=== PATIENT | female | born 1955 | race Caucasian/White ===

== ENCOUNTER 2019-01-04 03:25 | Inpatient (IN) | payer MEDICARE ==
[~2019-01-04] VITALS: Ht 160 cm; Wt 78.0 kg
[~2019-01-04 03:25] MED LIST: ATOR40TA78 PO; CANA300T PO; GABA-826 PO; LISI-170 PO
--- NOTE | 2019-01-04 03:32 | NUR ---
BROUGHT IN BY [facility] FROM HOME. PATIENT SUDDENLY HAVING PALPITATION. TOOK HER PULSE OX AND FOUND HER HEART RATE WAS 220. HX OF SVT. EMS ARRIVAL PATIENT STILL ON 220, ADENOSINE GIVEN @ 0304 6 MG CONVERTED BUT IT CAME BACK, 12 MG ADENOSINE GIVEN @ 0308, CONVERTED.
[2019-01-04] MEDS ORDERED: ASPI81TA45 PO (03:42)
[2019-01-04] MEDS ORDERED: GLIP5TAB10 PO (03:42)
[2019-01-04] MEDS ORDERED: PROP10TA16 PO (03:42)
[2019-01-04] MEDS ORDERED: METH5TAB6 PO (03:42)
--- NOTE | 2019-01-04 03:51 | NUR ---
blood drawn. IVF hung.
[2019-01-04 03:58] LABS: BASOPHILS # (AUTO) 0.04 x10^3/uL (0-0.1); BASOPHILS % (AUTO) 1 % (0-1); EOSINOPHILS % (AUTO) 5 % (1-7); LYMPHOCYTES # (AUTO) 1.78 x10^3/uL (1-3.4); LYMPHOCYTES % (AUTO) 22 % (22-44); MD NO; MEAN CORPUSCULAR HEMOGLOBIN 25.8 pg (27.0-34.8); MEAN CORPUSCULAR HGB CONC 32.4 g/dL (32.4-35.8); MEAN CORPUSCULAR VOLUME 79.6 fL (80-100); MEAN PLATELET VOLUME 9.8 fL (7.4-10.4); MONOCYTES # (AUTO) 0.87 x10^3/uL (0.2-0.8); MONOCYTES % (AUTO) 11 % (2-9); NEUTROPHILS # (AUTO) 5.16 x10^3/uL (1.8-6.8); NEUTROPHILS % (AUTO) 63 % (42-75); PLATELET COUNT 229 x10^3/uL (130-400); RED BLOOD COUNT 5.21 x10^6/uL (3.82-5.3); RED CELL DISTRIBUTION WIDTH 15.1 % (9.6-15.2)
[2019-01-04] MEDS ORDERED: SODIUM CHLORIDE 0.9% 1,000ML IVBOLUS ONE (04:00)
[2019-01-04 04:09] LABS: ANION GAP 5 mmol/L (5-15); CALCIUM 8.5 mg/dL (8.5-10.1); CHLORIDE 113 mmol/L (98-107); CREATININE 0.53 mg/dL (0.55-1.02)
[2019-01-04 04:13] LABS: FREE T4 (FREE THYROXINE) 2.58 ng/dL (0.76-1.46); TROPONIN I < 0.015 ng/mL (0.000-0.045)
--- NOTE | 2019-01-04 04:48 | NUR ---
all labs and X ray resulted. chart up for MD to re-eval.
[2019-01-04] MEDS ORDERED: PROPRANOLOL 60 MG TABLET PO ONE (05:30)
[2019-01-04] MEDS ORDERED: PROPYLTHIOURACIL 50 MG TABLET PO ONE (05:30)
--- NOTE | 2019-01-04 05:45 | NUR ---
patient went to bathroom with steady gait.
--- NOTE | 2019-01-04 06:25 | NUR ---
patient resting comfortably. awaiting bed assignment.
--- NOTE | 2019-01-04 06:48 | NUR ---
Hospitalist at bedside for patient evaluation.
--- NOTE | 2019-01-04 06:56 | NUR ---
report to Nathalie RN's
[2019-01-04] MEDS ORDERED: MAGNESIUM SULFATE PMX 2GM/50ML 50 ML IV ONE (07:00)
[2019-01-04] MEDS ORDERED: DOCUSATE 100 MG CAPSULE PO PRN (07:30)
[2019-01-04] MEDS ORDERED: ACETAMINOPHEN 325 MG TABLET PO PRN (07:30)
[2019-01-04] MEDS ORDERED: ENALAPRILAT 1.25 MG/ML, 2ML IVPush PRN (07:30)
--- NOTE | 2019-01-04 07:34 | NUR ---
REPORT GIVEN TO RODR[facility] RN'S. PATIENT IS RESTING IN ROOM WITH CALL LIGHT IN REACH AWAITING TRANSPORT.
--- NOTE | 2019-01-04 07:49 | NUR ---
PATIENT TRANSPORTED TO [facility].
[2019-01-04 08:03] LABS: HEMOGLOBIN A1C 7.7 % (4.2-6.3)
[2019-01-04 08:05] VITALS: BP 157/69
[2019-01-04] MEDS: METHIMAZOLE 5 MG TAB PO SCH ×3 (09:00→20:29)
[2019-01-04 12:31] LABS: TROPONIN I < 0.015 ng/mL (0.000-0.045)
[2019-01-04] MEDS ORDERED: OMNIPAQUE 350 MG/ML, 100ML BOTTLE ONE (13:23)
[2019-01-04 13:51] VITALS: BP 185/93
[2019-01-04] MEDS: PROPRANOLOL 40 MG TABLET PO SCH ×2 (14:13→21:19)
[2019-01-04] MEDS: MAGNESIUM OXIDE 400 MG TABLET PO SCH ×2 (14:13→20:29)
[2019-01-04] MEDS: SODIUM CHLORIDE 0.9% 1,000 ML IV SCH ×2 (14:17→21:19)
[2019-01-04] MEDS ORDERED: ONDANSETRON 2MG/ML, 2ML IVPush PRN (16:00)
[2019-01-04] MEDS ORDERED: LORazepam 0.5MG TABLET PO ONE (16:00)
[2019-01-04] MEDS ORDERED: ALUMINUM/MAG/SIMETHICONE 30 ML UDC ONE (16:01)
[2019-01-04] MEDS ORDERED: LORazepam 0.5MG TABLET ONE (16:02)
[2019-01-04] MEDS ORDERED: ONDANSETRON 2MG/ML, 2ML ONE (16:02)
[2019-01-04] MEDS: ENOXAPARIN 40 MG/0.4 ML SQ SCH (16:04)
[2019-01-04] MEDS: ALUMINUM/MAG/SIMETHICONE 30 ML UDC PO PRN (16:05)
[2019-01-04] MEDS ORDERED: MAGNESIUM SULFATE PMX 2GM/50ML 50 ML ONE (16:17)
[2019-01-04 16:52] LABS: TROPONIN I < 0.015 ng/mL (0.000-0.045)
[2019-01-04 19:29] VITALS: BP 140/84
[2019-01-05] VITALS (7 sets, daily range): BP systolic 114–160; BP diastolic 56–83
[2019-01-05] MEDS: SODIUM CHLORIDE 0.9% 1,000 ML IV SCH (03:50)
[2019-01-05 05:11] LABS: ALANINE AMINOTRANSFERASE 18 U/L (12-78); ALBUMIN 2.7 g/dL (3.4-5.0); ANION GAP 3 mmol/L (5-15); CALCIUM 8.1 mg/dL (8.5-10.1); CHLORIDE 114 mmol/L (98-107); CREATININE 0.52 mg/dL (0.55-1.02)
[2019-01-05 05:12] LABS: BASOPHILS # (AUTO) 0.03 x10^3/uL (0-0.1); BASOPHILS % (AUTO) 0 % (0-1); EOSINOPHILS # (AUTO) 0.36 x10^3/uL (0-0.4); EOSINOPHILS % (AUTO) 5 % (1-7); LYMPHOCYTES # (AUTO) 1.92 x10^3/uL (1-3.4); LYMPHOCYTES % (AUTO) 25 % (22-44); MD NO; MEAN CORPUSCULAR HGB CONC 32.3 g/dL (32.4-35.8); MEAN CORPUSCULAR VOLUME 80.5 fL (80-100); MEAN PLATELET VOLUME 10.4 fL (7.4-10.4); MONOCYTES # (AUTO) 1.07 x10^3/uL (0.2-0.8); MONOCYTES % (AUTO) 14 % (2-9); NEUTROPHILS # (AUTO) 4.42 x10^3/uL (1.8-6.8); NEUTROPHILS % (AUTO) 57 % (42-75); PLATELET COUNT 196 x10^3/uL (130-400); RED BLOOD COUNT 4.66 x10^6/uL (3.82-5.3); RED CELL DISTRIBUTION WIDTH 14.8 % (9.6-15.2)
[2019-01-05 05:13] LABS: ALKALINE PHOSPHATASE 129 U/L (45-117); BILIRUBIN,TOTAL 0.3 mg/dL (0.2-1.0); TOTAL PROTEIN 6.3 g/dL (6.4-8.2)
[2019-01-05] MEDS: PROPRANOLOL 40 MG TABLET PO SCH ×3 (05:58→21:39)
[2019-01-05] MEDS: METHIMAZOLE 5 MG TAB PO SCH ×3 (09:51→22:46)
[2019-01-05] MEDS: MAGNESIUM OXIDE 400 MG TABLET PO SCH ×2 (09:51→20:04)
[2019-01-05 14:04] LABS: CLOSTRIDIUM DIFFICILE ANTIGEN NEGATIVE; CLOSTRIDIUM DIFFICILE TOXIN NEGATIVE (Negative)
[2019-01-05] MEDS ORDERED: LOPERAMIDE 2 MG CAPSULE PO PRN (16:00)
[2019-01-05] MEDS: ENOXAPARIN 40 MG/0.4 ML SQ SCH (17:34)
[2019-01-05] MEDS: ALUMINUM/MAG/SIMETHICONE 30 ML UDC PO PRN (18:08)
[2019-01-06 01:31] VITALS: BP 123/76
[2019-01-06 02:35] VITALS: BP 142/84
[2019-01-06] MEDS: PROPRANOLOL 40 MG TABLET PO SCH ×3 (05:11→21:02)
[2019-01-06 05:28] LABS: ANION GAP 3 mmol/L (5-15); CALCIUM 8.5 mg/dL (8.5-10.1); CHLORIDE 110 mmol/L (98-107)
[2019-01-06 05:30] LABS: CREATININE 0.56 mg/dL (0.55-1.02)
[2019-01-06 07:40] VITALS: BP 139/76
[2019-01-06] MEDS: METHIMAZOLE 5 MG TAB PO SCH ×3 (08:21→21:02)
[2019-01-06] MEDS: MAGNESIUM OXIDE 400 MG TABLET PO SCH ×2 (08:21→21:01)
[2019-01-06 14:46] VITALS: BP 141/82
[2019-01-06] MEDS: ENOXAPARIN 40 MG/0.4 ML SQ SCH (16:35)
[2019-01-06 21:00] VITALS: BP 122/76
[2019-01-07 02:11] VITALS: BP 151/77
[2019-01-07] MEDS: PROPRANOLOL 40 MG TABLET PO SCH (05:51)
[2019-01-07 07:10] VITALS: BP 139/83
[2019-01-07] MEDS: METHIMAZOLE 5 MG TAB PO SCH (08:35)
[2019-01-07] MEDS: MAGNESIUM OXIDE 400 MG TABLET PO SCH (08:35)
[2019-01-07] MEDS ORDERED: GLIP5TAB10 PO (11:01)
[2019-01-07] MEDS ORDERED: METH5TAB6 PO (11:01)
[2019-01-07] MEDS ORDERED: MAGN400T50 PO (11:01)
[2019-01-07] MEDS ORDERED: PROP40TA PO (11:01)
== END 2019-01-07 12:50 | disposition home or self-care (01) | DRG 644 ==
LOC: ED 05:26 → EDIP 05:36 → 5SO 07:45 → DCLOUNGE 01-07 12:29
PROVIDERS: ADMIT Internal Medicine; ATTEND Internal Medicine
DX: E05.00 Thyrotoxicosis with diffuse goiter without thyrotoxic crisis or storm (principal); I47.1 Supraventricular tachycardia; I47.2 Ventricular tachycardia; E83.42 Hypomagnesemia; K80.20 Calculus of gallbladder without cholecystitis without obstruction; E78.00 Pure hypercholesterolemia, unspecified; E78.5 Hyperlipidemia, unspecified; G62.9 Polyneuropathy, unspecified; I10 Essential (primary) hypertension; I48.91 Unspecified atrial fibrillation; E11.42 Type 2 diabetes mellitus with diabetic polyneuropathy; J44.9 Chronic obstructive pulmonary disease, unspecified; R04.0 Epistaxis; Z91.14 Patient's other noncompliance with medication regimen; Z98.51 Tubal ligation status
CPT/HCPCS: 0399T; 36415; 36430; 71045; 74177; 74181; 80048; 80053; 82040; 83036; 83735; 84439; 84443; 84481; 84484; 85025; 87324; 93005; 93306; G0378; J1650; J2405; Q9967; J3475; J7030